=== PATIENT | male | born 1980 | race Caucasian/White ===

== ENCOUNTER 2022-08-22 15:10 | Emergency (ER) | payer MEDICARE, SELFPAY ==
[2022-08-22 15:17] VITALS: BP 144/85; PULSE 111; RESP 16; TEMP 36.4; O2SAT 98
--- NOTE | 2022-08-22 15:25 | ED.URI ---
HPI - URI/Sore Throat General Chief Complaint: Upper Respiratory Infection Stated Complaint: Sore throat, fever Time Seen by Provider: 08/22/22 15:25 Source: patient, RN notes reviewed and old records reviewed Mode of arrival: ambulatory Limitations: no limitations History of Present Illness HPI Narrative: 42-year-old male who presents to [facility] with complaints of sore throat sinus drainage and congestion and some ear discomfort for the past 2 days with fevers up to 103.4. Patient reports that his kids just had strep throat. Patient reports that he has been taking Ibuprofen, DayQuil and NyQuil for his symptoms. Patient denies any acute cough or any shortness of breath. MD elicited complaint: sore throat, rhinorrhea and nasal congestion Onset (ago): day(s) (2) Pain scale (0-10): 4 Able to tolerate fluids by mouth: Yes Exacerbating factors: swallowing Treatments prior to arrival: ibuprofen and other (DayQuil and NyQuil) Related Data Home Medications Medication Instructions Recorded Confirmed bupropion HCl (smoking deter) 150 150 mg PO BID 08/22/22 08/22/22 mg tablet,12 hr sustained-release(smoking deterrent) dulaglutide 0.75 mg/0.5 mL mg subcut 08/22/22 subcutaneous pen injector (Trulicity) empagliflozin 25 mg tablet 25 mg PO DAILY 08/22/22 08/22/22 (Jardiance) escitalopram oxalate 20 mg tablet 20 mg PO DAILY 08/22/22 08/22/22 famotidine 20 mg tablet 20 mg PO DAILY 08/22/22 08/22/22 losartan 25 mg tablet 25 mg PO DAILY 08/22/22 08/22/22 metformin 500 mg tablet 1,000 mg PO BID 08/22/22 08/22/22 simvastatin 40 mg tablet 40 mg PO DAILY 08/22/22 08/22/22 Allergies Allergy/AdvReac Type Severity Reaction Status Date / Time No Known Allergies Allergy Verified 08/22/22 15:28 Review of Systems Review of Systems: CONSTITUTIONAL:Reports malaise, chills, sweats, or fever. EYES: Denies visual changes, redness, or discharge. ENT: Reports rhinorrhea, congestion, sinus pain, otalgia and sore throat. CARDIOVASCULAR: Denies chest pain, palpitations, or edema. RESPIRATORY: Reports no acute cough.? Denies dyspnea. GASTROINTESTINAL: Denies abdominal pain, nausea, vomiting, diarrhea SKIN: Denies rash or itching. MUSCULOSKELETAL: Denies myalgia. NEUROLOGIC: Denies headache. All systems reviewed & are unremarkable except as noted in HPI and below PMFSH Past Medical History Medical History (Updated 08/25/22 @ 12:58 by Esme Garza NP) Anxiety and depression Diabetes Elevated cholesterol GERD (gastroesophageal reflux disease) Hypertension DELLA (obstructive sleep apnea) Social History Social History (Updated 08/25/22 @ 12:56 by Esme Garza NP) Smoking packs per day: 1 Smoking cigarettes per day: 20.0 Smoking status: Current every day smoker Alcohol intake: unknown Substance use type: does not use Living arrangements: with family Gender identity (if verbalized by the patient): Male Comments At time of signature, agree with nursing past medical, surgical, social and family history. There is no relevant family history pertinent to the presenting complaint Exam Narrative: GENERAL: Well-appearing, well-nourished, and in no acute distress. HEAD: Normocephalic EYES: PERRLA, conjunctivae clear ENT: Nares clear, turbinates edematous and erythematous, clear discharge. Mucous membranes moist. TM pearly hudson with dull light reflex bilaterally; no tragal tenderness. Oropharynx erythematous without lesions. Tonsils red and enlarged without exudate, no drooling, no hoarseness, no trismus, uvula midline and red NECK: Supple.lymphadenopathy CHEST: Clear to auscultation, breath sounds equal. No wheezing, rhonchi, rales, or stridor. No respiratory distress, speaks in full sentences.SAO2 98% on room air HEART: Regular rate and rhythm. No murmur heard. SKIN: Warm, dry, no rash. NEURO: Alert and oriented x3. PSYCH: Normal mood and affect Course Course Emergency Co
== END 2022-08-22 16:25 | disposition home or self-care (01) ==
PROVIDERS: Emergency Provider Registered Nurse
DX: J02.0 Streptococcal pharyngitis (principal); E11.9 Type 2 diabetes mellitus without complications; K21.9 Gastro-esophageal reflux disease without esophagitis; I10 Essential (primary) hypertension; F17.210 Nicotine dependence, cigarettes, uncomplicated
CPT/HCPCS: 87880; 99213; G0463

== ENCOUNTER → 2024-01-12 13:29 | Outpatient (CLI) | payer MEDICARE, SELFPAY ==
--- NOTE | ~2024-01-12 | XR_ITS ---
3 VIEWS LUMBAR SPINE Ordering provider: Oliver Stallings MD History: . M47.896 SPONDYLOSIS , LUMAR REGION . Comparison: None. FINDINGS: VERTEBRAL BODIES: No visible fracture or subluxation. DISK SPACES: Narrowing of the disc L3-L4 and L4-L5. SOFT TISSUES: Normal. IMPRESSION: No acute osseous abnormality lumbar spine. Reviewed, dictated and finalized at location A.
== END ==
LOC: EXPBRAD 13:33
PROVIDERS: PCP Emergency Medicine; Visit Provider Emergency Medicine
DX: M47.896 Other spondylosis, lumbar region (principal)
CPT/HCPCS: 72100

== ENCOUNTER 2024-02-24 02:08 | Day surgery (SDC) | payer MEDICARE, SELFPAY ==
[2024-02-10 12:40] VITALS: BMI 30.7
[2024-02-24 09:19] VITALS: BP 143/88; PULSE 103; RESP 18; TEMP 35.8; O2SAT 99; BMI 29.0
[2024-02-24] MEDS: LACTATED RINGERS 1,000 ML 150 ML IV CONT (09:46)
[2024-02-24 09:47] LABS: Glucose Point of Care 172 mg/dl (65-105)
--- NOTE | 2024-02-24 10:17 | WPDANESEPPF ---
Anes - Initial Pre Proc Eval Procedure: Operation Date: 02/24/24 10:30 Proposed Procedures p Esophagogastroduodenoscopy&Screen Colon - Chang Montelongo MD Date/Time: 02/24/24 10:17 Surgeon: Chang Montelongo MD Pre Op Diagnosis: Gerd, Neoplasm screening Patient Data Age: 44 Gender: M Height: 1.8 m Weight: 94.4 kg Last Vital Signs Temp 96.4 F L 02/24/24 09:19 Pulse 103 H 02/24/24 09:19 Resp 18 02/24/24 09:19 BP 143/88 H 02/24/24 09:19 Pulse Ox 99 02/24/24 09:19 O2 Del Method Room Air 02/24/24 09:19 Allergies Allergy/AdvReac Type Severity Reaction Status Date / Time No Known Allergies Allergy Verified 02/24/24 09:26 Home Medications Medication Instructions Recorded Confirmed Type bupropion HCl (smoking deter) 150 150 mg PO BID 08/22/22 02/24/24 History mg tablet,12 hr sustained-release(smoking deterrent) dulaglutide 0.75 mg/0.5 mL 1.5 mg subcut WEEKLY 08/22/22 02/24/24 History subcutaneous pen injector (Trulicity) empagliflozin 25 mg tablet 25 mg PO DAILY 08/22/22 02/24/24 History (Jardiance) famotidine 20 mg tablet 20 mg PO DAILY 08/22/22 02/24/24 History losartan 25 mg tablet 25 mg PO DAILY 08/22/22 02/24/24 History metformin 500 mg tablet 1,000 mg PO BID 08/22/22 02/24/24 History simvastatin 40 mg tablet 40 mg PO DAILY 08/22/22 02/24/24 History duloxetine 60 mg capsule,delayed 60 mg PO DAILY 02/10/24 02/24/24 History release Laboratory Tests 02/24/24 09:40 POC Capillary Glucose 172 H mg/dl (65-105) Patient hx anesthesia problems: none Family hx anesthesia problems: none Results Review: All pre-operative results and documents have been reviewed as part of the pre-operative evaluation. [facility] Past Medical History Medical History (Updated 08/25/22 @ 12:58 by Esme Garza NP) Anxiety and depression Diabetes Elevated cholesterol GERD (gastroesophageal reflux disease) Hypertension DELLA (obstructive sleep apnea) Social History Social History (Updated 08/25/22 @ 12:56 by Esme Garza NP) Smoking packs per day: 1 Smoking cigarettes per day: 20.0 Years smoked: 20 Smoking pack-years: 20.00 Smoking status: Current every day smoker Tobacco type: cigarettes Alcohol intake: unknown Substance use: current Substance use type: does not use Other substance usage details: THC [employer] (2xmonth) Living arrangements: with family Gender identity (if verbalized by the patient): Male Spiritual care concerns: No Anes - Eval Final PreProcedure Day of Procedure 02/24/24 10:17 Patient weight: normal Heart: regular rate and rhythm Lungs: clear to auscultation Airway: Mallampati scale class II Neurological: alert and oriented Last oral intake: >/= 8 hours ASA classification: III Emergent: no Anesthetic plan: proceed Anesthesia type and monitoring: general GIVS and standard monitoring Results Review: All pre-operative results and documents have been reviewed as part of the pre-operative evaluation. Informed Consent: The patient's anesthetic plan and its attendant risks and benefits were discussed with the patient/family/POA. Questions were solicited and answers provided to the satisfaction of the patient/family/POA.
--- NOTE | 2024-02-24 11:01 | PM.HPGS ---
History of Present Illness History of Present Illness Consent: Risks, benefits, and alternatives have been discussed and questions answered. Patient agrees to proceed with procedure. Chief complaint: Gerd, Neoplasm screening Narrative: Frank Thacker is a 44 year old male with gerd on famotidine, here for egd, also colonoscopy (last one about 8 years ago) Review of Systems Review of Systems: All systems reviewed & are unremarkable except as noted in HPI and below PMFSH Past Medical History Medical History (Updated 02/24/24 @ 11:02 by Chang Montelongo MD) Anxiety and depression Colon cancer screening Diabetes Elevated cholesterol GERD (gastroesophageal reflux disease) Hypertension DELLA (obstructive sleep apnea) Social History Social History (Updated 08/25/22 @ 12:56 by Esme Garza NP) Smoking packs per day: 1 Smoking cigarettes per day: 20.0 Years smoked: 20 Smoking pack-years: 20.00 Smoking status: Current every day smoker Tobacco type: cigarettes Alcohol intake: unknown Substance use: current Substance use type: does not use Other substance usage details: THC [facility] (2xmonth) Living arrangements: with family Gender identity (if verbalized by the patient): Male Spiritual care concerns: No Meds Home Medications and Allergies Home Medications Medication Instructions Recorded Confirmed Type bupropion HCl (smoking deter) 150 150 mg PO BID 08/22/22 02/24/24 History mg tablet,12 hr sustained-release(smoking deterrent) dulaglutide 0.75 mg/0.5 mL 1.5 mg subcut WEEKLY 08/22/22 02/24/24 History subcutaneous pen injector (Trulicity) empagliflozin 25 mg tablet 25 mg PO DAILY 08/22/22 02/24/24 History (Jardiance) famotidine 20 mg tablet 20 mg PO DAILY 08/22/22 02/24/24 History losartan 25 mg tablet 25 mg PO DAILY 08/22/22 02/24/24 History metformin 500 mg tablet 1,000 mg PO BID 08/22/22 02/24/24 History simvastatin 40 mg tablet 40 mg PO DAILY 08/22/22 02/24/24 History duloxetine 60 mg capsule,delayed 60 mg PO DAILY 02/10/24 02/24/24 History release Allergies Allergy/AdvReac Type Severity Reaction Status Date / Time No Known Allergies Allergy Verified 02/24/24 09:26 Vital Signs Vital Signs - 24 hr 08/28/24 09:19 Temperature 96.4 F L Pulse Rate 103 H Respiratory Rate 18 Blood Pressure 143/88 H Pulse Oximetry 99 Oxygen Delivery Room Air Exam Const: General: comfortable and no acute distress HENMT: Face/Nose/Sinus: Normal nares present Eyes: General: appearance normal, both eyes and all related structures Neck: Neck: no JVD Resp: Auscultation: clear to auscultation bilaterally Cardio: Rate: regular rate Rhythm: regular rhythm GI: Inspection: non-distended GI Palp: Yes Soft to palpation Skin: General skin exam: normal color Neuro: General: gait normal Speech: normal speech Extrem: General: normal to inspection Psych: Mental Status: mental status grossly normal Assessment and Plan Assessment and plan (1) GERD (gastroesophageal reflux disease): Code(s): K21.9 - Gastro-esophageal reflux disease without esophagitis Status: Acute Assessment and Plan: egd (2) Colon cancer screening: Code(s): Z12.11 - Encounter for screening for malignant neoplasm of colon Status: Acute Assessment and Plan: colonoscopy
[2024-02-24] MEDS: BENZOCAINE (*SP) 60 ML SPRAY CAN (HURRICAINE) 1 SPRAY MUCOUS MEM (11:03)
--- NOTE | 2024-02-24 11:13 | SUR.OPER ---
EGD COMPLETED AT 1109, COLONOSCOPY STARTED 1113
[2024-02-24 11:28] VITALS: BP 136/77; PULSE 101; RESP 25; O2SAT 95
[2024-02-24 11:38] VITALS: BP 129/71; PULSE 94; RESP 22; O2SAT 95
[2024-02-24 11:48] VITALS: BP 121/74; PULSE 88; RESP 19; O2SAT 98
== END 2024-02-24 12:02 | disposition home or self-care (01) ==
PROVIDERS: PCP Emergency Medicine; Visit Provider Internal Medicine Gastroenterology
PROC: 0DJ08ZZ Inspection of Upper Intestinal Tract, Via Natural or Artificial Opening Endoscopic (ICD-10-PCS; CPT 43235; principal; 2024-02-24 10:30)
DX: Z12.11 Encounter for screening for malignant neoplasm of colon (principal); K64.8 Other hemorrhoids; K21.9 Gastro-esophageal reflux disease without esophagitis; E11.9 Type 2 diabetes mellitus without complications; I10 Essential (primary) hypertension; E78.00 Pure hypercholesterolemia, unspecified; G47.33 Obstructive sleep apnea (adult) (pediatric); F41.8 Other specified anxiety disorders; F17.210 Nicotine dependence, cigarettes, uncomplicated; Z79.85 Long-term (current) use of injectable non-insulin antidiabetic drugs; Z79.84 Long term (current) use of oral hypoglycemic drugs
CPT/HCPCS: 43239; G0121; 82948; 88305; J2704; J7120

== ENCOUNTER 2024-08-08 10:00 | Outpatient (CLI) | payer MEDICARE, SELFPAY ==
--- NOTE | ~2024-08-08 | MR_ITS ---
EXAMINATION: MR lumbar spine wo con DATE: 08/08/2024 10:36 INDICATION: Spondylosis with low back pain TECHNIQUE: Magnetic resonance imaging (MRI) of the lumbar spine was performed without intravenous con trast. Sequences included sagittal T2-weighted FSE, sagittal T2-weighted FS FSE, sagittal T1-weighted FSE, and axial T2-weighted FSE. COMPARISON: None FINDINGS: Alignment is normal. Vertebral body heights are normal. Normal marrow signal. Disc desiccation, mild disc height loss and annular fissures at L3-L4 and L4-L5. Remaining lumbar and visualized lower thor acic discs are normal. The conus medullaris terminates at L1. There is normal signal in the caudal sp inal cord. Partially visualized T2 hyperintense at least 3.2 cm cyst at the lower pole the left kidne y. Paravertebral soft tissues are unremarkable. The following disc levels are specifically discussed: T12-L1 through L2-L3: The disc does not extend beyond the endplate margin. There is mild bilateral fa cet joint osteoarthritis. There is no neural foraminal stenosis. There is no central canal stenosis. L3-L4: Annular fissure with broad-based disc extrusion extending from foraminal zone to foraminal zon e with disc material extending up to 4 mm caudal to the level of the superior endplate of L4. There i s mild bilateral facet joint osteoarthritis. There is moderate right and mild to moderate left neural foraminal stenosis. There is mild central canal stenosis. L4-L5: Annular fissure and broad-based disc extrusion extending from foraminal zone to foraminal zone with disc material extending up to 3 mm caudal to the level of the superior endplate of L5. There is hypertrophy of the ligamentum flavum. There is mild right and moderate left facet joint osteoarthrit is. There is moderate right and mild to moderate left neural foraminal stenosis. There is severe cent ral canal stenosis with taut appearance to the nerve roots cephalad to the stenosis and lax appearanc e more caudally. L5-S1: Small left foraminal zone disc protrusion. There is mild to moderate bilateral facet joint ost eoarthritis. There is mild right and mild to moderate left neural foraminal stenosis. There is no agata tral canal stenosis. IMPRESSION: 1. Mild lower lumbar spondylosis most notable for a severe central canal stenosis at L4-L5. Reviewed, dictated and finalized at location A. SPEED WARPER TENDER IMPRESSION: 1. Mild lower lumbar spondylosis most notable for a severe central canal stenos is at L4-L5.
== END 2024-08-08 10:01 | disposition home or self-care (01) ==
LOC: GOSHIMG 10:01
PROVIDERS: PCP Emergency Medicine; Visit Provider Emergency Medicine
DX: M47.896 Other spondylosis, lumbar region (principal); M48.061 Spinal stenosis, lumbar region without neurogenic claudication
CPT/HCPCS: 72148

== ENCOUNTER 2025-04-11 09:36 | Outpatient (CLI) | payer MEDICARE, SELFPAY ==
--- NOTE | 2025-04-11 10:00 | NEURO_ITS ---
Impression: # Diabetic complains of numbness of lower extremities. # Axonal Neuropathy with neurogenic changes on Needle/ EMG exam. Nerve Conduction Studies ?Stim Site NR Peak (ms) P-T Amp (?V) Site1 Site2 Delta-P (ms) Dist (cm) Haim (m/s) Left Sup Fibular Anti Sensory (Ant Lat Mall) 14 cm ? 3.3 12.7 14 cm Ant Lat Mall 3.3 16.0 48 Right Sup Fibular Anti Sensory (Ant Lat Mall) 14 cm ? 3.3 10.1 14 cm Ant Lat Mall 3.3 16.0 48 Left Sural Anti Sensory (Lat Mall) Calf ? 3.1 0.9 Calf Lat Mall 3.1 16.0 52 Right Sural Anti Sensory (Lat Mall) Calf ? 3.2 2.9 Calf Lat Mall 3.2 16.0 50 ?Stim Site NR Onset (ms) O-P Amp (mV) Site1 Site2 Delta-0 (ms) Dist (cm) Haim (m/s) Left Peroneal Motor (Vastus Med) Ankle ? 4.8 4.0 Popit Ankle 10.3 41.0 40 Popit ? 15.1 3.0 Right Peroneal Motor (Vastus Med) Ankle ? 4.7 2.5 Popit Ankle 10.1 42.0 42 Popit ? 14.8 1.8 Left Tibial Motor (Abd Cloud Brev) Ankle ? 5.2 5.7 Knee Ankle 10.5 42.0 40 Knee ? 15.7 2.4 Right Tibial Motor (Abd Cloud Brev) Ankle ? 5.5 5.5 Knee Ankle 10.6 43.0 41 Knee ? 16.1 2.9 F Wave Studies ?NR F-Lat (ms) L-R F-Lat (ms) Left Peroneal (Mrkrs) (EDB) ? 58.48 0.47 Right Peroneal (Mrkrs) (EDB) ? 58.95 0.47 Left Tibial (Mrkrs) (Abd Hallucis) ? 66.13 6.11 Right Tibial (Mrkrs) (Abd Hallucis) ? 60.02 6.11 Electromyography ?Side Muscle Nerve Root Ins Act Fibs Amp Dur Recrt Comment Right AntTibialis Dp Br Fibular L4-5 Nml Nml Nml >12ms Nml Right Gastroc Tibial S1-2 Nml Nml Nml >12ms Nml Right Fibularis Long Sup Br Fibular L5-S1 Nml Nml Nml >12ms Nml Right Flex Dig Long Tibial L5-S2 Nml Nml Nml >12ms Nml Right Ext Dig Brev Dp Br Fibular L5, S1 Nml Nml Nml >12ms Nml Right QuadratusFem QuadFemoris L4-5, S1 Nml Nml Nml Nml Nml Left AntTibialis Dp Br Fibular L4-5 Nml Nml Nml >12ms Nml Left Gastroc Tibial S1-2 Nml Nml Nml >12ms Nml Left Fibularis Long Sup Br Fibular L5-S1 Nml Nml Nml >12ms Nml Left Flex Dig Long Tibial L5-S2 Nml Nml Nml >12ms Nml Left Ext Dig Brev Dp Br Fibular L5, S1 Nml Nml Nml >12ms Nml Left QuadratusFem QuadFemoris L4-5, S1 Nml Nml Nml Nml Nml
--- OUTSIDE RECORDS SUMMARY | 2025-04-11 10:52 | XMS_ITS | Encounter Summary ---
Author Organization [facility] Address 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 Gender Identity Not on file Sexual Orientation Not on file documented as of this encounter Last Filed Vital Signs Vital Sign Reading Time Taken Comments Blood Pressure 130/80 07/03/2006 11:30 AM PURSE SEINING HAND Pulse - - Temperature 37.2 C (98.9 F) 07/03/2006 11:30 AM PURSE SEINING HAND Respiratory Rate - - Oxygen Saturation - - Inhaled Oxygen Concentration - - Weight 99.3 kg (219 lb) 07/03/2006 11:30 AM PURSE SEINING HAND Height 182.9 cm (6') 07/03/2006 11:30 AM PURSE SEINING HAND Body Mass Index 29.7 07/03/2006 11:30 AM PURSE SEINING HAND documented in this encounter Plan of Treatment Not on file documented as of this encounter Visit Diagnoses Not on filedocumented in this encounter Care Teams Print Operator Relationship Specialty Start Date End Date Semaj Artis MD PCP - General 08/31/08 documented as of this encounter
--- OUTSIDE RECORDS SUMMARY | 2025-04-11 10:53 | XMS_ITS | Encounter Summary ---
Author Organization [facility] Address 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 Gender Identity Not on file Sexual Orientation Not on file documented as of this encounter Last Filed Vital Signs Vital Sign Reading Time Taken Comments Blood Pressure 140/80 01/04/2007 4:30 PM CDT Pulse - - Temperature 36.7 C (98.1 F) 01/04/2007 4:30 PM CDT Respiratory Rate - - Oxygen Saturation - - Inhaled Oxygen Concentration - - Weight 100.7 kg (222 lb) 01/04/2007 4:30 PM CDT Height - - Body Mass Index 30.11 07/03/2006 11:30 AM RADIO INTERFERENCE EXPERT documented in this encounter Plan of Treatment Not on file documented as of this encounter Visit Diagnoses Not on filedocumented in this encounter Care Teams Volleyball Commentator Relationship Specialty Start Date End Date Semaj Artis MD PCP - General 08/31/08 documented as of this encounter
--- OUTSIDE RECORDS SUMMARY | 2025-04-11 10:53 | XMS_ITS | Encounter Summary ---
Author Organization [facility] Address [address] [place] [address] Care Team Providers Care Clinical Aide Name Role Phone Semaj Artis MD Primary Care Provider [phone] Encounter Details Date Type Department Care Team (Late st Contact Info) Description 09/24/2007 Orders Only [facility] Internal Medicine [address] [address] Semaj Artis MD [address] [place] [id number] Social History Tobacco Use Types Packs/Day Years Used Date Smoking Tobacco: Every Day Alcohol Use Standard Drinks/Week Comments Not Asked 0 (1 standard drink = 0.6 oz pur e alcohol) Sex and Gender Information Value Date Recorded Sex Assigned at Not on file 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 715.90-OSTEOARTHROSIS UNSPECIFIED documented in this encounter Plan of Treatment Not on file documented as of this encounter Visit Diagnoses Not on filedocumented in this encounter Care Teams Clinical Aide Relationship Specialty Start Date End Date Semaj Artis MD PCP - General 08/31/08 documented as of this encounter
--- OUTSIDE RECORDS SUMMARY | 2025-04-11 10:53 | XMS_ITS | Encounter Summary ---
Author Organization [facility] Address 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 Gender Identity Not on file Sexual Orientation Not on file documented as of this encounter Last Filed Vital Signs Vital Sign Reading Time Taken Comments Blood Pressure 120/80 02/25/2007 3:45 PM CDT Pulse - - Temperature 37.2 C (98.9 F) 02/25/2007 3:45 PM CDT Respiratory Rate - - Oxygen Saturation - - Inhaled Oxygen Concentration - - Weight 98.9 kg (218 lb) 02/25/2007 3:45 PM CDT Height - - Body Mass Index 29.57 07/03/2006 11:30 AM PERINATAL SPECIALIST documented in this encounter Plan of Treatment Not on file documented as of this encounter Visit Diagnoses Not on filedocumented in this encounter Care Teams Fertilizing Machine Operator Relationship Specialty Start Date End Date Semaj Artis MD PCP - General 08/31/08 documented as of this encounter
--- OUTSIDE RECORDS SUMMARY | 2025-04-11 10:53 | XMS_ITS | Encounter Summary ---
Author Organization [facility] Address 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 on legs. HISTORY: noncompliant with fu still smoking, did not fu lab, now with several days rash after in garden no improvement with otc poison kevyn rx SOCIAL HISTORY: TOBACCO USE: Has no significant smoking history. DISCUSSED SMOKING: counselled. PHYSICAL EXAMINATION: CONSTITUTIONAL: GENERAL APPEARANCE: Healthy appearing patient in no distress. NECK/THYROID: Trachea midline. No thyroid enlargement, tenderness, or mass. No supraclavicular or cervical adenopathy. RESPIRATORY: Clear to auscultation and percussion. Normal respiratory effort. CARDIOVASCULAR: CARDIAC: Regular rhythm. No murmurs, rubs, or gallops. ARTERIAL: No aortic bruits. EDEMA/VARICOSITIES OF EXTREMITIES: No edema or varicosities. GASTROINTESTINAL: ABDOMEN: Soft, non-tender, without masses. Bowel sounds active. LIVER/SPLEEN/KIDNEY: No hepatosplenomegaly, tenderness or nodularity. Kidneys not palpable. SKIN: dermatitis le ASSESSMENT/PLAN: 272.4-HYPERLIPIDEMIA recheck lab, discussed diet LAB ORDERS: Order number: [id number] Test Ordered: COMPREHENSIVE METABOLIC PANEL & GFR 1112 Order number: [id number] Test Ordered: LIPID PANEL 1078 305.1-TOBACCO ABUSE enc cessation V17.4-FAMILY HISTORY OF CARDIOVASCULAR DISEASE bp high, home monitor reassess, may needmed 782.1-RASH rx MEDICATIONS: MEDROL (JENNIFER) ORAL TABLET 4 MG, DIRECTED, 1 Dispensed, status: NEW PRESCRIPTION, 01/04/2007. TRIAMCINOLONE ACETONIDE EXTERNAL CREAME 0.1 %, DIRECTED, 50 Dispensed, status: NEW PRESCRIPTION,01/04/2007. REPEAT VITAL SIGNS: BLOOD PRESSURE: 140/80. Right Arm Sitting PREVENTIVE COUNSELING The patient was counseled regarding diet, regular sustained exercise for at least 30 minutes 3-4 times per week, smoking cessation. Patient Education: The importance of compliance was stressed. The patient was told that there needsto be a commitment to following our agreed upon course of action. It was noted that failing to be compliant can lead to untoward health outcomes. RETURN VISIT : Patient instructed to return in 6 weeks. Electronically Signed by: Semaj Artis MD on Thursday, January 04, 2007 documented in this encounter Plan of Treatment Not on file documented as of this encounter Visit Diagnoses Not on filedocumented in this encounter Care Teams Dish Room Worker Relationship Specialty Start Date End Date Semaj Artis MD PCP - General 08/31/08 documented as of this encounter
--- OUTSIDE RECORDS SUMMARY | 2025-04-11 10:53 | XMS_ITS | Encounter Summary ---
Author Organization [facility] Address 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 c/o back and neck pain.c/o epigastric pain. HISTORY: HISTORY: 493.90-ASTHMA UNSPECIFIED occ wheeze in am, worse recently 305.1-TOBACCO ABUSE The patient continues to smoke regularly despite the awareness that this is harmful. 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 No major weight gain or loss. No malaise, chills, fever, diaphoresis. ALLERGIC/IMMUNOLOGIC: No hay fever or history of environmental allergies. No chronic problems with immunity. EYES: No vision changes or diplopia. ENT: NASAL CONGESTION PRESENT. ENDOCRINE: No heat or cold intolerance, no excessive thirst. CARDIAC: No chest pain, palpitations, orthopnea, dyspnea on exertion, or paroxysmal nocturnal dyspnea. RESPIRATORY: HAS A COUGH, HAS HAD PERIODS OF SHORTNESS OF BREATH, NOTES WHEEZING. SKIN/BREAST/CHEST: No rashes or non-healing lesions. No breast symptoms noted. HEMATOLOGIC/LYMPHATIC: No anemia, easy bruising, bleeding or swollen nodes. : No dysuria or hematuria. GI: No abdominal pain, nausea, vomiting, diarrhea, constipation, melena, or hematochezia. NEUROLOGIC: No weakness, dizziness, loss of consciousness, transient ischemic symptoms, or seizures. MUSCULOSKELETAL: NOTES JOINT PAIN, COMPLAINS OF A BACKACHE, JOINT WEAKNESS NOTED. PSYCHIATRIC: No increased nervousness, mood changes or depression. Coping well. PAST MEDICAL HISTORY: MEDICAL: Asthma. SURGICAL: No previous surgery. CURRENT MEDICATIONS: Patient is currently on no medication. ALLERGIES/ADVERSE REACTIONS: No known drug allergies. FAMILY HISTORY: GENERAL FAMILY ILLNESS: FATHER: The father is . The cause of was congestive heart failure. occurred at age 52. MOTHER: The mother is living. No major illnesses are known. SIBLINGS: 1) The patient's brother is living. Illnesses: Hypertension, hypercholesterolemia. SOCIAL HISTORY: MARITAL HISTORY: Single. LIVING WILL: The patient does not have a living will. TOBACCO USE: Currently smokes 1 1/2 PPD, has smoked for 10 to 15 years. 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 DIET: Follows no specific diet. SAFETY ISSUES: Uses seat belts. PHYSICAL EXAMINATION: CONSTITUTIONAL: GENERAL APPEARANCE: Healthy appearing patient in no distress. EARS, NOSE, MOUTH AND THROAT: EARS: Tympanic membranes shiny without retraction. Canals unremarkable. Hearing grossly normal. ORAL: Inspection of gums, lips, palate, and teeth normal. No scars, lesions, or masses. Oral mucosaunremarkable with non-inflamed posterior pharynx. NECK/THYROID: Trachea midline. No thyroid enlargement, tenderness, or mass. No supraclavicular or cervical adenopathy. RESPIRATORY: Clear to auscultation and percussion. Normal respiratory effort. CARDIOVASCULAR: CARDIAC: Regular rhythm. No murmurs, rubs, or gallops. ARTERIAL: No aortic bruits. EDEMA/VARICOSITIES OF EXTREMITIES: No edema or varicosities. GASTROINTESTINAL: ABDOMEN: Soft, non-tender, without masses. Bowel sounds active. LIVER/SPLEEN/KIDNEY: No hepatosplenomegaly, tenderness or nodularity. Kidneys not palpable. HERNIA: No hernias are present. GENITOURINARY: SCROTUM/CONTENTS: Normal in appearance with no hydrocele, spermatocele, tenderness of cord, or testicular mass. PHALLUS: No lesion on glans. Shaft normal. No Peyronie's noted. MUSCULOSKELETAL EXAM: EXTREMITIES: parasp tenderness ls spine, shoulder ok, trap m tender PE/MS/BILAT UPPER EXT No misalignment or tenderness. Full range of motion. Normal stability, strength and tone. BILATERAL LOWER EXTREMITIES: No misalignment or tenderness. Full range of motion. Normal stability,strength and tone. ASSESSMENT/PLAN: 305.1-TOBACCO ABUSE enc cessation try med MEDICATIONS: WELLBUTRIN SR ORAL TABLET 12 HR 150 MG, 1 Two Times A Day, 60 Dispensed, 2 Fills, status: NEW PRESCRIPTION, 07/03/2006. 493.90-ASTHMA UNSPECIFIED add med, enc above, inc to steroid if needed MEDICATIONS: ALBUTEROL INHALATION AEROSOL SOLUTION 90 MCG/ACT, 2 Four Times A Day, As Needed, 1 Dispensed, 2 Fills, status: NEW PRESCRIPTION, 07/03/2006. LAB ORDERS: Order number: [id number] Test Ordered: INJ-PNEUMOVAX 66962 Order number: [id number] Test Ordered: CBC W/ DIFFERENTIAL 3150 Order number: [id number] Test Ordered: COMPREHENSIVE METABOLIC PANEL & GFR 1112 Order number: [id number] Test Ordered: LIPID PANEL 1078 Order number: [id number] Test Ordered: TSH 1720 715.90-OSTEOARTHROSIS UNSPECIFIED check x rays MEDICATIONS: CELEBREX ORAL CAPSULE CONVENTIONAL 200 MG, 1 Every Day, 30 Dispensed, status: NEW PRESCRIPTION, 07/03/2006. LAB ORDERS: Order number: [id number] Test Ordered: XRAY L SPINE, ROUTINE (5 VIEWS) W/OBL Order number: [id number] Test Ordered: XRAY C SPINES, ROUTINE (5 VIEWS) W/OBL Order number: [id number] Test Ordered: XRAY SHOULDER LEFT 530.81-GASTROESOPHAGEAL REFLUX (GERD) dc alleve, above, lifestyle mod, med reassess MEDICATIONS: PROTONIX ORAL TABLET ENTERIC COATED 40 MG, 1 Every Day, 30 Dispensed, status: NEW PRESCRIPTION, 07/03/2006. V17.4-FAMILY HISTORY OF CARDIOVASCULAR DISEASE reviewed risk reduction father 52 PREVENTIVE COUNSELING The patient was counseled regarding diet, regular sustained exercise for at least 30 minutes 3-4 times per week, smoking cessation. RETURN VISIT : Patient instructed to return in 1 month. Electronically Signed by: Semaj Artis MD on Monday, July 03, 2006 documented in this encounter Plan of Treatment Not on file documented as of this encounter Visit Diagnoses Not on filedocumented in this encounter Care Teams Aircraft Painter Apprentice Relationship Specialty Start Date End Date Semaj Artis MD PCP - General 08/31/08 documented as of this encounter
--- OUTSIDE RECORDS SUMMARY | 2025-04-11 10:53 | XMS_ITS | Encounter Summary ---
Author Organization [facility] Address 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 Vanessa Girlfreind Patient reports no known allergies. PHARMACY NUMBER: PROBLEMS: COUGH: . Productive,girlfreind doesnt know color SORE THROAT: Patient complains of sore throat. The sore throat began approximately 1 day ago. Denies Fever. Pt was just here Aug 06 for sore throat. SECTION 1: REQUESTED ACTION [facility] 08/19/06 at 08:43 am: MEDICATION REQUEST: Patient wants medications and can not come in. MEDICATIONS: CEFUROXIME AXETIL ORAL TABLET 250 MG, 1 Two Times A Day, 20 Dispensed, status: NEW PRESCRIPTION, 08/19/2006. FINAL ACTION: in 08/19/06 at 08:54 am Spoke with patient 08/19/06 at 08:54 am. Called pharmacy at 08/19/06 at 08:54 am. documented in this encounter Plan of Treatment Not on file documented as of this encounter Visit Diagnoses Not on filedocumented in this encounter Care Teams Exchange Engineer Relationship Specialty Start Date End Date Semaj Artis MD PCP - General 08/31/08 documented as of this encounter
--- OUTSIDE RECORDS SUMMARY | 2025-04-11 10:53 | XMS_ITS | Encounter Summary ---
Author Organization [facility] Address 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 HISTORY: sinus donald sore throat, x several days, still smoking, jts better, gerd better with med PHYSICAL EXAMINATION: EARS, NOSE, MOUTH AND THROAT: EARS: EFFUSION PRESENT BILATERALLY, TYMPANIC MEMBRANES INFLAMED BILATERALLY. ORAL: OROPHARYNX ERYTHEMATOUS. NECK/THYROID: Trachea midline. No thyroid enlargement, tenderness, or mass. No supraclavicular or cervical adenopathy. RESPIRATORY: Clear to auscultation and percussion. Normal respiratory effort. CARDIOVASCULAR: CARDIAC: Regular rhythm. No murmurs, rubs, or gallops. EDEMA/VARICOSITIES OF EXTREMITIES: No edema or varicosities. ASSESSMENT/PLAN: 272.4-HYPERLIPIDEMIA discu diet, recheck--recheck bp as well 305.1-TOBACCO ABUSE enc cessation has script for wellbutrin did not fill 493.90-ASTHMA UNSPECIFIED has script for inh 530.81-GASTROESOPHAGEAL REFLUX (GERD) cont med 461.9-SINUSITIS UNSPECIFIED MEDICATIONS: ZITHROMAX Z-JENNIFER ORAL TABLET 250 MG, DIRECTED, 1 Dispensed, 1 Fills, status: NEW PRESCRIPTION, 08/06/2006. MEDROL (JENNIFER) ORAL TABLET 4 MG, DIRECTED, 1 Dispensed, status: NEW PRESCRIPTION, 08/06/2006. RETURN VISIT : Instructed to call if not improving. Patient instructed to return in 2 months. Electronically Signed by: Semaj Artis MD on July documented in this encounter Plan of Treatment Not on file documented as of this encounter Visit Diagnoses Not on filedocumented in this encounter Care Teams Scrum Product Owner Relationship Specialty Start Date End Date Semaj Artis MD PCP - General 08/31/08 documented as of this encounter
--- OUTSIDE RECORDS SUMMARY | 2025-04-11 10:53 | XMS_ITS | Encounter Summary ---
Author Organization [facility] Address 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 Gender Identity Not on file Sexual Orientation Not on file documented as of this encounter Last Filed Vital Signs Vital Sign Reading Time Taken Comments Blood Pressure 140/70 08/06/2006 4:00 PM MANAGER CREDIT COLLECTIONS Pulse - - Temperature 37.1 C (98.8 F) 08/06/2006 4:00 PM MANAGER CREDIT COLLECTIONS Respiratory Rate - - Oxygen Saturation - - Inhaled Oxygen Concentration - - Weight 100.7 kg (222 lb) 08/06/2006 4:00 PM MANAGER CREDIT COLLECTIONS Height - - Body Mass Index 30.11 07/03/2006 11:30 AM MANAGER CREDIT COLLECTIONS documented in this encounter Plan of Treatment Not on file documented as of this encounter Visit Diagnoses Not on filedocumented in this encounter Care Teams Tissue Inserter Relationship Specialty Start Date End Date Semaj Artis MD PCP - General 08/31/08 documented as of this encounter
--- OUTSIDE RECORDS SUMMARY | 2025-04-11 10:53 | XMS_ITS | Clinical Summary ---
Author Organization [facility] Address [address] [place] [address] Phone Care Team Providers Care Speech Assistant Name Role Phone Semaj Artis MD Primary Care Provider [phone] Allergies No known active allergies Social History Tobacco Use Types Packs/Day Years Used Date Smoking Tobacco: Never Assessed Sex and Gender Information Value Date Recorded Sex Assigned at Not on file Legal Sex Male 12:25 AM CDT Gender Identity Not on file Sexual Orientation Not on file Last Filed Vital Signs Vital Sign Reading Time Taken Comments Blood Pressure 161/92 11/07/2024 8:30 PM CDT Pulse 100 11/07/2024 8:30 PM CDT Temperature 37.6 C (99.7 F) 11/07/2024 6:04 PM CDT Respiratory Rate 21 11/07/2024 8:30 PM CDT Oxygen Saturation 97% 11/07/2024 8:30 PM CDT Inhaled Oxygen Concentration - - Weight 96.6 kg (213 lb) 11/07/2024 6:04 PM CDT Height 180.3 cm (5' 11) 11/07/2024 6:04 PM CDT Body Mass Index 29.71 11/07/2024 6:04 PM CDT Plan of Treatment Health Maintenance Due Date Last Done Comments Hepatitis C Virus (HCV) Screening 1979 Hepatitis B Immunization (1 of 3 - 19+ 3-dose series) 1998 Cologuard 01/21/2024 Colonoscopy 01/21/2024 Colorectal Cancer Screening 01/21/2024 Immunochemical Fecal Occult Blood 01/21/2024 10/16/2010 Welcome to Medicare (IPPE) G0402 07/30/2024 Influenza Immunization (#1) 02/27/2025/12/2021, 05/10/2021, 08/07/2020, Additional history exists SARS-COV-2 Immunization (2024- season) 2025 10/05/2020, 09/07/2020 Respiratory Syncytial Virus (RSV) Immunization (Adult) (1 - 1-dose 75+ series) 2054 Pneumococcal Immunization Combined Aged Out 02/17/2017, 07/04/2008 No longer eligibl e based on patient's age to complete this topic DTaP/Tdap/Td Immunization Discontinued 2017, 06/15/2014, 12/28/2007 TdaP Immunization Completed 02/23/2018, , 12/28/2007 Human Papillomavirus (HPV) Immunization Aged Out No longer eligible based on patient's age to complete this topic Meningococcal Immunization (ACWY) Aged Out No longer eligible based on patient's age to complete this topic Rotavirus Immunization Aged Out No lo nger eligible based on patient's age to complete this topic Insurance MEDICARE C [employer] Care Teams Speech Assistant Relationship Specialty Start Date End Date Semaj Artis MD [address] [place] [phone] PCP - General 11/08/15
--- OUTSIDE RECORDS SUMMARY | 2025-04-11 10:53 | XMS_ITS | Clinical Summary ---
Author Organization [facility] Address [address] [place] [address] Care Team Providers Care Civil Engineering Professor Name Role Phone Semaj Artis MD Primary Care Provider [phone] Allergies Active Allergy Reactions Criticality Noted Date Comments No Known Allergies 07/03/2006 Medications albuterol 90 mcg/Actuation Inhalation HFAA inhaler Take 2 Puffs by inhalation every 6 hours as needed for Shortness of Breath. 6.7 Gram 1 3 Active polyethylene glycol (MIRALAX) 17 gram Oral PwPk Take 1 Packet by mouth daily. 30 Packet 0 3 Active blood sugar diagnostic (ONETOUCH VERIO) Strip Check blood sugar once daily.. 50 Each 11 8 Active lancets (One Touch Delica) 33 gauge Check Blood sugar once daily.. 100 Each 11 8 Active clotrimazole-beta methasone (LOTRISONE) 1-0.05 % Cream Apply to affected area 2 times daily Foot bid. 45 Gram 2 9 Active gabapentin (NEURONTIN) 300 mg capsule TAKE 1 CAPSULE BY MOUTH TWICE DAILY FOR 30 DAYS 0 Active modafinil (Provigil) 100 mg TabletIndications :Other sleep apnea Take 1 Tablet (100 mg) by mouth daily. Dx sleep apnea 30 Tablet 3 0 Active losartan (COZAAR) 25 mg tablet Take 1 Tablet (25 mg) by mouth daily. 90 Tablet 3 0 Active escitalopram oxalate (LEXAPRO) 20 mg tablet Take 1 Tablet (20 mg) by mouth daily. 90 Tablet 3 0 Active busPIRone (BUSPAR) 15 mg Tablet Take 1 Tablet (15 mg) by mouth 2 times daily. 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 90 Tablet 3 0 Active metFORMIN (GLUCOPHAGE) 500 mg tablet Take 1 Tablet (500 mg) by mouth 3 times daily. 270 Tablet 3 0 Active simvastatin (ZOCOR) 20 mg tablet Take 1 Tablet (20 mg) by mouth daily at bedtime. 90 Tablet 3 0 Active omeprazole (PriLOSEC) 40 mg Capsule, Delayed Release(E.C.)Crys cations:Esophagea l reflux Take 1 Capsule (40 mg) by mouth daily. 90 Capsule 3 0 Active traMADoL (ULTRAM) 50 mg tabletIndications :Lumbar radiculopathy Take 1 Tablet (50 mg) by mouth every 8 hours as needed for Pain. 90 Tablet 0 Active cyclobenzaprine (FLEXERIL) 10 mg tablet Take 1 Tablet by mouth daily. 0 Active Jardiance 10 mg tablet Take 1 Tablet by mouth daily. 0 Active Active Problems Patient Care Coordination No te Formatting of this note migh t be different from the original. Prev 08/05/18 Problem Noted Date Diagnosed Date Type 2 diabetes mellitus wit h neurologic complication, without long-term current use of insulin 11/25/2017 Tobacco use 11/08/2015 Cigarette dependence 11/08/2015 Hyperglycemia 12/29/2012 Overview (12/29/2012): Patient had elevated glucose levels in hospital. 181 and 109. Last A1C was 11/11/2009 and was 5.7. He has future orders for A1C and we suggest getting this test done. Follow up as outpatient. Mesenteric adenitis 12/28/2012 Overview (12/29/2012): Based on CT at outside hospital. Mild clinical symptomatology on admission. Antibiotics unnecessary. Placed patient on IVF and pain control. Patient had excellent appetite while in hospital. Upon discharge, patient pain controlled and had successful bowel movement prior to discharge. Discharged with pain medication and miralax and colace. HTN (hypertension) 12/28/2012 Overview (12/29/2012): Stable. Continue home lisinopril. Obstructive sleep apnea on CPAP 12/28/2012 Overview (12/29/2012): Patient uses CPAP at home. No desaturations overnight in hospital. Moderate episode of recurrent major depressive d isorder 12/28/2012 Overview (12/29/2012): Questionable. He takes celexa 20mg at home, but states it is for anxiety. Chronic back pain 12/28/2012 Overview (12/29/2012): Patient reports he has slipped discs and takes flexeril at home. Given vicodin at ED only recently and is not on that medication chronically. He was given 40 tabs of vicodin and verbalized he only had about 15 left to me. I gave him 15 norco 5- 325 to help with adenitis pain. Hyperlipidemia 07/06/2006 Overview (12/29/2012): Continue on statin Unspecified asthma(493.90) 07/03/2006 Osteoarthrosis, unspecified whether generalized or localized, unspecified site 07/03/2006 Esophageal reflux 07/03/2006 Overview (12/29/2012): Continue home prilosec. Received GI cocktail upon admission that helped his symptoms Family history of other cardiovascular diseases( V17.49) 07/03/2006 Overview (07/24/2010): Updating IMO/ICD9 Code and Description Resolved Problems Problem Noted Date Diagnosed Date Resolved Date Rash and other nonspecific skin eruption 01/04/2007 12/01/2007 Acute sinusitis, unspecified 08/06/2006 12/01/2007 Tobacco use disorder 07/03/2006 011 Screening for thyroid disorder 07/03/2006 09/24/2007 Screening for lipoid disorders 07/03/2006 09/24/2007 Immunizations Immunization Administration Dates Next Due (ADACEL/BOOSTRIX)(10 YR UP) TDAP VACCINE, 0.5ML, IM 02/23/2018,12/28/2007 (PNEUMOVAX 23)(50 YRS UP) PN EUMOCOCCAL POLYSACCHARIDE (PPV23) 0.5 ML, IM 02/17/2017,07/04/2008 INFLUENZA VACCINE QUADRIVALENT 6 MOS UP PF IM Influenza Seasonal Unspecified Formulation IM ,04/15/2010 Family History Medical History Relation Name Comments Heart Disease Father of [place] Relation Name Status Comments Father Social History Tobacco Use Types Packs/Day Years Used Date Smoking Tobacco: Every Day Cigarettes 0.5 16 Started: 08/03/1992; Last attempted to quit: 08/03/2008 Smokeless Tobacco: Never Alcohol Use Standard Drinks/Week Comments Yes 0 (1 standard drink = 0.6 oz pur e alcohol) Sex and Gender Information Value Date Recorded Sex Assigned at Not on file Legal Sex Male 3:19 AM PATIENT SERVICE REP Gender Identity Not on file Sexual Orientation Not on file 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 Not on file Not on file Not on file Last Filed Vital Signs Vital Sign Reading Time Taken Comments Blood Pressure 130/90 02/08/2020 3:09 PM CDT Pulse 94 02/08/2020 3:09 PM CDT Temperature 37.1 C (98.8 F) 02/08/2020 3:09 PM CDT Respiratory Rate 18 03/10/2019 11:11 AM CDT Oxygen Saturation 98% 02/08/2020 3:09 PM CDT Inhaled Oxygen Concentration - - Weight 102.1 kg (225 lb) 05/21/2020 11:25 AM PATIENT SERVICE REP Height 182.9 cm (6') 05/21/2020 11:25 AM PATIENT SERVICE REP Body Mass Index 30.52 05/21/2020 11:25 AM PATIENT SERVICE REP Plan of Treatment Health Maintenance Due Date Last Done Comments DIABETES ANNUAL RETINAL EXAM 1997 DIABETES MICROALBUMIN ANNUAL SCREEN 1997 HEPATITIS B VACCINES (1 of 3 - 19+ 3-dose series) 1998 LDL CHOLESTEROL ANNUAL 12/05/2018 8, 09/01/2017, 10/18/2011, Additional history exists DIABETES HBA1C Q 6 MONTHS 02/02/20192018, 12/05/2017, 09/01/2017, Additional history exists Preventative Visit-Managed Medicaid 08/06/2019 08/05/2018, 09/03/2017, 02/17/2017, Additional history exists DIABETES ANNUAL FOOT EXAM 01/13/20202018, 08/05/2018, 12/07/2017, Additional history exists COLORECTAL SCREENING 01/21/2024 11/13/2011 Colorectal Cancer Screening 01/21/2024 FIT-DNA Q 3 years 01/21/2024 FIT/FOBT Q 1 year 01/21/2024 10/16/2010 Flex Sig/CT Colonography Q 5 years 01/21/2024 INFLUENZA VACCINE (#1) 2025 9, 06/07/2013, 04/15/2010 DTAP/TDAP/TD VACCINES (3 - Td or Tdap) 02/24/2028 02/23/2018, 12/28/2007 HPV VACCINES Aged Out No longer eligi ble based on patient's age to complete this topic Procedures Procedure Name Priority Date/Time Associated Diagnosis Comments POC HEMOGLOBIN A1C Routine 08/05/2018 3: 47 PM PATIENT SERVICE REP Type 2 diabetes mellitus with diabetic neuropathy, without long-term current use of insulin ([facility]) LIPID PANEL Routine 12/05/2017 7:09 AM CDT Type 2 diabetes mellitus with hemoglobin A1c goal of less than 7.0% ([facility]) POC OCCULT BLOOD UP TO 3 CARDS Routine 10/16/2010 Rectal bleeding from Last 3 Months or Most Recently Relevant to Health Maintenance Results * POC HEMOGLOBIN A1C (08/05/2018 3:47 PM PATIENT SERVICE REP) HGB A1C POC 5.5 4.0 - 6.0 % [facility] Blood, capillary 08/05/2018 3:47 PM PATIENT SERVICE REP us Semaj Artis MD POINT OF CARE TESTING Final R esult [facility] [id number] [address] [place] [address] * (ABNORMAL) LIPID PANEL (12/05/2017 7:09 AM CDT) ABSTRACTED CHOLESTEROL EXTERNAL LAB ABSTRACTED TRIGLYCERIDE EXTERNAL LAB ABSTRACTED HDL EXTERNAL LAB ABSTRACTED LDL CALCULATED EXTERNAL LAB CHOLESTEROL 136 0 - 200 mg/dL EXTERNAL LAB TRIGLYCERIDE 218(A) 0 - 150 mg/dL EXTERNAL LAB HDL 26(A) 35 - 96 mg/dL EXTERNAL LAB LDL CALCULATED <=100 mg/dL EXTERNAL LAB Blood 12/05/2017 7:09 AM CDT Semaj Artis MD CHEMISTRY ORDERABLES Final Re sult EXTERNAL LAB * POC OCCULT BLOOD UP TO 3 CARDS (10/16/2010) OCCULT BLOOD #1 [facility] OCCULT BLOOD #2 [facility] OCCULT BLOOD #3 [facility] Stool specimen (specimen) Semaj Artis MD POINT OF CARE TESTING Final R esult [facility] from Last 3 Months or Most Recently Relevant to Health Maintenance Insurance [place] Member Subscriber Plan / Payer (Ef fective 2020-Present) Name:Frank Thacker Relation to Subscriber:Self Name:Frank Thacker Payer ID:Not on file Group ID:Not on file Type:Medicaid Address: [address] [employer] [place] Advance Directives For more information, please contact: [phone] * Full Code (Latest Code Status on File) Date Activated Date Inactivated Comments 12/28/2012 2:12 PM 12/29/2012 8:21 PM * Full Code Date Activated Date Inactivated Comments 11/13/2011 11:23 AM 11/14/2011 2:01 AM Care Teams Civil Engineering Professor Relationship Specialty Start Date End Date Semaj Artis MD PCP - General 08/31/08
--- OUTSIDE RECORDS SUMMARY | 2025-04-11 10:53 | XMS_ITS | Encounter Summary ---
Author Organization [facility] Address 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 CHIEF COMPLAINT Patient here for follow up hyperlipidemia. Patient complains of sinus congestion. HISTORY: working on diet, lab reviewed, still smoking, sinus donald worse x 2-3 d PHYSICAL EXAMINATION: CONSTITUTIONAL: GENERAL APPEARANCE: Healthy appearing patient in no distress. EARS, NOSE, MOUTH AND THROAT: EARS: EFFUSION PRESENT BILATERALLY. ORAL: OROPHARYNX ERYTHEMATOUS. NECK/THYROID: Trachea midline. [...] hepatosplenomegaly, tenderness or nodularity. Kidneys not palpable. ASSESSMENT/PLAN: 272.4-HYPERLIPIDEMIA start med, enc diet MEDICATIONS: SIMVASTATIN ORAL TABLET 20 MG, 1 Every Day, 30 Dispensed, 4 Fills, status: NEW PRESCRIPTION, 02/25/2007. LAB ORDERS: 3 mo Order number: [id number] Test Ordered: COMPREHENSIVE METABOLIC PANEL & GFR 1112 Order number: [id number] Test Ordered: LIPID PANEL 1078 305.1-TOBACCO ABUSE enc cessation, given med MEDICATIONS: CHANTIX STARTING MONTH JENNIFER ORAL MISCELLANEOUS 0.5 MG X 11 & 1 MG X 42, DIRECTED, 1 Dispensed, status: NEW PRESCRIPTION, 02/25/2007. 461.9-SINUSITIS UNSPECIFIED rx MEDICATIONS: ZITHROMAX Z-JENNIFER ORAL TABLET 250 MG, DIRECTED, 1 Dispensed, 1 Fills, status: CONTINUED, 02/25/2007. NASONEX NASAL SUSPENSION 50 MCG/ACT, 2 Every Morning, 2 Dispensed, status: NEW PRESCRIPTION, 02/25/2007. RETURN VISIT : Patient instructed to return in 3 months. Electronically Signed by: Semaj Artis MD on January documented in this encounter Plan of Treatment Not on file documented as of this encounter Visit Diagnoses Not on filedocumented in this encounter Care Teams Boiler Or Engine Operator Relationship Specialty Start Date End Date Semaj Artis MD PCP - General 08/31/08 documented as of this encounter
== END 2025-04-11 09:37 | disposition home or self-care (01) ==
PROVIDERS: PCP Emergency Medicine; Visit Provider Nurse Practitioner Adult Health
DX: R20.0 Anesthesia of skin (principal)
CPT/HCPCS: 95886; 95910